=== PATIENT | male | born 1970 | race American Indian/Alaskan Native ===

== ENCOUNTER 2017-01-31 19:19 | Emergency (ER) | payer OTHER ==
[2017-01-31 19:34] VITALS: BP 123/81; PULSE 83; RESP 20; TEMP 98.8; O2SAT 97
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
--- NOTE | 2017-02-01 09:54 | RAD ---
PROCEDURE: Radiographs of the Left Shoulder HISTORY: pain s.p fall COMPARISON: No prior. FINDINGS: BONES: Normal. No fracture. JOINTS: Normal. Glenohumeral and acromioclavicular joints preserved. No osteoarthritis. SOFT TISSUES: Normal. OTHER FINDINGS: None. IMPRESSION: Normal radiographs of the left shoulder.
== END 2017-01-31 20:03 | disposition home or self-care (01) ==
LOC: C.ER 19:19
DX: S43.402A Unspecified sprain of left shoulder joint, initial encounter (principal); V19.3XXA Pedal cyclist (driver) (passenger) injured in unspecified nontraffic accident, initial encounter; Y93.55 Activity, bike riding